=== PATIENT | female | born 1955 ===

== ENCOUNTER 2020-06-06 13:45 | Inpatient (IN) | payer OTHER ==
[2020-06-06] MEDS ORDERED: AVAPRO150 MG PO (18:02)
[2020-06-06] MEDS ORDERED: METFORMIN HCL500 M3 PO (18:02)
[2020-06-06] MEDS ORDERED: TENORMIN50 M1 PO (18:02)
[2020-06-06] MEDS ORDERED: GABAPENTIN400 MG PO (18:03)
[2020-06-07] MEDS ORDERED: OMEGA-31000 MG (13:18)
[2020-06-07] MEDS ORDERED: MAGNESIUM200 MG (13:18)
== END 2020-06-08 16:28 | disposition home or self-care (01) | DRG 743 ==
LOC: O/R 06-07 09:06 → OB/GYN 06-07 13:45
PROVIDERS: ADMIT Specialist; ATTEND Specialist
PROC: 0UT1FZZ Resection of Left Ovary, Via Natural or Artificial Opening With Percutaneous Endoscopic Assistance (ICD-10-PCS; 2020-06-07)
PROC: 0UT7FZZ Resection of Bilateral Fallopian Tubes, Via Natural or Artificial Opening With Percutaneous Endoscopic Assistance (ICD-10-PCS; 2020-06-07)
PROC: 0UT9FZZ Resection of Uterus, Via Natural or Artificial Opening With Percutaneous Endoscopic Assistance (ICD-10-PCS; principal; 2020-06-07 14:30)
DX: N80.0 Endometriosis of uterus (principal); N72 Inflammatory disease of cervix uteri; N83.332 Acquired atrophy of left ovary and fallopian tube; N70.11 Chronic salpingitis; I10 Essential (primary) hypertension; E11.9 Type 2 diabetes mellitus without complications; M19.90 Unspecified osteoarthritis, unspecified site